=== PATIENT | male | born 1995 | race Caucasian/White ===

== ENCOUNTER 2019-02-11 15:17 | Emergency (ER) | payer OTHER ==
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
[2019-02-11] MEDS ORDERED: ceFAZolin IM 1 GM VIAL IM ONE (15:45)
[2019-02-11] MEDS ORDERED: IOHEXOL 350 MG/ML 100 ML VIAL. IV ONE (15:45)
[2019-02-11 15:46] LABS: BASO % 0 % (0-3); EOS % 0 % (0-3); HEMATOCRIT 39.3 % (39.0-53.0); HEMOGLOBIN 12.4 g/dL (13.0-17.5); LYMPH # 1.7 x10^3/uL (1.0-4.8); LYMPH % 30 % (24-48); MEAN CORPUSCULAR HEMOGLOBIN 23 pg (25-35); MEAN CORPUSCULAR HGB CONC 32 g/dL (31-37); MEAN CORPUSCULAR VOLUME 73 fL (79-100); MONO # 0.5 x10^3/uL (0.0-1.1); MONO % 9 % (0-9); NEUT # 3.5 x10^3uL (1.8-7.7); NEUT % 60 % (31-73); PLATELET COUNT 216 x10^3/uL (140-400); RED BLOOD COUNT 5.36 x10^6/uL (4.30-5.70); RED CELL DISTRIBUTION WIDTH 15.3 % (11.5-14.5); WHITE BLOOD COUNT 5.8 x10^3/uL (4.0-11.0)
[2019-02-11] MEDS ORDERED: FLUORESCEIN 1MG EYE STRIP. OU ONE (16:00)
[2019-02-11] MEDS ORDERED: TETRACAINE 0.5% OPHTH SOLUTION 4ML BOTTLE. OU ONE (16:00)
[2019-02-11] MEDS ORDERED: DIPHTH,PERTUSS(ACELL),TET TOX 0.5 ML DISP.SYRIN. VAX IM ONE (16:00)
[2019-02-11 16:03] LABS: ALBUMIN 4.1 g/dL (3.4-5.0); ALBUMIN/GLOBULIN RATIO 1.1 (1.0-1.7); CALCIUM 8.6 mg/dL (8.5-10.1); GFR 91.8; POTASSIUM 3.6 mmol/L (3.5-5.1); TOTAL BILIRUBIN 0.3 mg/dL (0.2-1.0); TOTAL PROTEIN 7.8 g/dL (6.4-8.2)
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
[2019-02-11 16:30] VITALS: BP 140/80
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
[2019-02-11] MEDS ORDERED: RINGERS LACTATED IV ONE (16:45)
[2019-02-11] MEDS ORDERED: MORPHINE SULFATE 4 MG/ML DISP.SYRIN. IV ONE (17:00)
== END 2019-02-11 17:24 | disposition short-term general hospital (02) ==
LOC: ER 15:17
DX: S01.81XA Laceration without foreign body of other part of head, initial encounter (principal); S81.812A Laceration without foreign body, left lower leg, initial encounter; S41.011A Laceration without foreign body of right shoulder, initial encounter; H05.232 Hemorrhage of left orbit; W26.8XXA Contact with other sharp object(s), not elsewhere classified, initial encounter; Y93.89 Activity, other specified; Y92.148 Other place in prison as the place of occurrence of the external cause; Y99.8 Other external cause status
CPT/HCPCS: 36415; 70450; 70486; 70498; 71045; 80053; 83605; 85025; 85610; 85730; 86850; 86900; 86901; 90471; 90715; 96372; 96374; 99285; G0480; J0690; J2270; J7120; Q9967